=== PATIENT | female | born 1995 | race African-American/Black ===

== ENCOUNTER 2017-06-18 20:48 | Emergency (ER) | payer SELFPAY ==
[2017-06-18 20:50] VITALS: BP 108/74; PULSE 98; RESP 16; TEMP 98.5; O2SAT 100
[2017-06-18 21:46] LABS: BACTERIA, URINE FEW /hpf; BILIRUBIN, URINE NEG (NEG); BLOOD, URINE NEG (NEG); GLUCOSE,URINE NEG (NEG); KETONE, URINE NEG (NEG); MUCUS URINE MANY /lpf (OCC); NITRITE,URINE NEG (NEG); SQUAMOUS EPITHELIAL CELL URINE 24 /hpf (0-5); URINE COLOR YELLOW (YELLW/STRAW); URINE LEUKOCYTE ESTERASE MOD (NEG)
[2017-06-18] MEDS ORDERED: PROM25TA10 PO (23:28)
--- NOTE | 2017-06-18 23:28 | PD ---
HPI Chief Complaint: GI Complaint Time Seen by Provider: 23:12 Travel History International Travel<30 days: No Contact w/Intl Traveler<30days: No Traveled to known affect area: No History of Present Illness HPI 22-year-old female complains of pelvic cramping and nausea vomiting. Patient states that his symptoms started yesterday. Patient states that her pelvic pain mild intermittent cramping pain localized to the pelvic area. Patient denies any pain radiation. Patient denies dysuria or frequency. Patient denies any vaginal discharge or bleeding. Patient states that her last menstruation was March 25. Last Depo shot with more than 3 months ago. Patient states that she has never been . PFS Past Medical History Medical History: Denies Significant Hx ?: Unknown LMP: March Past Surgical History Surgical History: No Previous Surgery Social History Alcohol Use: No Tobacco Use: No Substance Use: No Allergies-Medications (Allergen,Severity, Reaction): Coded Allergies: No Known Allergies (Unverified , 06/18/17) Reported Meds & Prescriptions Reported Meds & Active Scripts Active No Active Prescriptions or Reported Medications Review of Systems General / Constitutional: No: Fever Eyes: No: Visual changes HENT: No: Headaches Cardiovascular: No: Chest Pain or Discomfort Respiratory: No: Shortness of Breath Gastrointestinal: No: Abdominal Pain Genitourinary: Positive: Pelvic Pain, No: Dysuria Musculoskeletal: No: Pain Skin: No Rash Neurologic: No: Weakness Psychiatric: No: Depression Endocrine: No: Polydipsia Hematologic/Lymphatic: No: Easy Bruising Physical Exam Narrative GENERAL: Well-nourished, well-developed patient. SKIN: Focused skin assessment warm/dry. HEAD: Normocephalic. EYES: No scleral icterus. No injection or drainage. NECK: Supple, trachea midline. No JVD or lymphadenopathy. CARDIOVASCULAR: Regular rate and rhythm without murmurs, gallops, or rubs. RESPIRATORY: Breath sounds equal bilaterally. No accessory muscle use. GASTROINTESTINAL: Abdomen soft, nondistended. Patient has mild tenderness on palpation suprapubic area. No rebound tenderness. No mass. MUSCULOSKELETAL: No cyanosis, or edema. BACK: Nontender without obvious deformity. No CVA tenderness. Data Data Last Documented VS Vital Signs Date Time Temp Pulse Resp B/P (MAP) Pulse Ox O2 Delivery O2 Flow Rate FiO2 1/16/18 20:50 98.5 98 16 108/74 (85) 100 Orders Orders Urinalysis - C+S If Indicated (06/18/17 20:54) Ed Urine Pregnancytest Poc (06/18/17 20:54) Labs Laboratory Tests Test 06/18/17 21:08 Urine Color YELLOW Urine Turbidity HAZY Urine pH 6.0 Urine Specific [place] 1.028 Urine Protein 30 mg/dL Urine Glucose (UA) NEG mg/dL Urine Ketones NEG mg/dL Urine Occult Blood NEG Urine Nitrite NEG Urine Bilirubin NEG Urine Urobilinogen 2.0 MG/DL Urine Leukocyte Esterase MOD Urine RBC 1 /hpf Urine WBC 5 /hpf Urine Squamous Epithelial Cells 24 /hpf Urine Bacteria FEW /hpf Urine Mucus MANY /lpf Microscopic Urinalysis Comment CULT NOT INDICATED MDM Medical Decision Making Medical Screen Exam Complete: Yes Emergency Medical Condition: Yes Interpretation(s) UAs negative. Urine test positive. Differential Diagnosis Differential diagnosis including , UTI, threatened AB, ectopic . Narrative Course 22-year-old female with mild pelvic cramping nausea vomiting. Urine test positive. Examination benign. Diagnosis Primary Impression: Qualified Codes: Z3A.01 - Less than 8 weeks gestation of Patient Instructions: General Instructions Additional Instructions: Phenergan as needed for nausea vomiting. Advised [id number] vitamins. Follow-up with OB physician. Return if increased abdominal pain, pelvic pain, vaginal bleeding. Med/Other Pt SpecificInfo: No Meds Exist/No RX given Scripts Promethazine (Phenergan) 25 Mg Tablet 25 MG PO Q6H Y for NAUSEA OR VOMITING, #20 TAB 0 Refills Prov: Leobardo Rodriguez MD 06/18/17 Disposition: 01 DISCHARGE HOME Condition: Stable Leobardo Rodriguez MD Jun 18, 2017 23:27
== END 2017-06-18 23:44 | disposition home or self-care (01) ==
LOC: NEPD 20:48
DX: O26.891 Other specified pregnancy related conditions, first trimester (principal); R10.2 Pelvic and perineal pain; O21.9 Vomiting of pregnancy, unspecified; Z3A.01 Less than 8 weeks gestation of pregnancy
CPT/HCPCS: 81001; 84703; 99283